=== PATIENT | male | born 1940 | race Caucasian/White ===

== ENCOUNTER 2017-12-14 04:33 | Inpatient (IN) | payer BC, MEDICARE ==
[~2017-12-14] VITALS: Ht 167.6 cm; Wt 78.0 kg
[2017-12-14] VITALS (9 sets, daily range): BP systolic 91–148; BP diastolic 50–76; PULSE 73–117; RESP 16–20; TEMP 97.6–103.2; O2SAT 87–97
--- NOTE | 2017-12-14 04:57 | PD ---
HPI Chief Complaint: Fever Time Seen by Provider: 04:38 Travel History International Travel<30 days: No Contact w/Intl Traveler<30days: No Traveled to known affect area: No History of Present Illness HPI The patient is a 77 year old male who presents to the [facility] emergency department with a history of difficulty urinating for the last week. The patient reports that he is visiting from [place]. He did call his urologist regarding this and his symptoms seem to be improving, however the symptoms also seem to be coming and going. He reports that he has an implanted artificial bladder and artificial sphincter. He reports that he presses a valve to open up and drain his bladder. He reports that he has been having difficulties with this and they plan to remove it. He reports that he had his bladder removed and the artificial bladder placed when he had bladder cancer in 2002. The patient reports that for the last 2 days he has had nausea without vomiting. The patient reports that he awoke around 1 AM with fever and chills. According to ambulance services the patient's took his temperature and it was 104. 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 The patient arrives with a reportedly normal temperature according to the nurse. The patient is tachycardic in the 1 teens. The patient has a cough that is productive sounding on exam, however he reports that this is chronic and he believes related to prior smoking and COPD. He denies his coughing any more productive than usual. He denies having any nasal discharge, postnasal drip, or sore throat. The patient was noted to be saturating 87% on room air on arrival. The patient was placed on 2 L nasal cannula O2 and his O2 saturations went up to 93-94%. On review of systems, he denies having any chest pain, chest pressure, worsening shortness of breath. He denies having any neck pain, abdominal pain, diarrhea, or focal neurologic symptoms. [facility] Past Medical History Narrative Medical The patient's past medical history is significant for hypertension, COPD, history of bladder cancer, hyperlipidemia, coronary artery disease status post cardiac stent placement. Respiratory: Yes (COPD) Past Surgical History Narrative Surgical The patient's past surgical history is significant for cardiac catheterization with stent placement, latter cancer resection, neobladder placement, artificial bladder sphincter placement, history of low back surgery, history of Botox injection of his throat, history of a hernia repair, history of back stimulator placement. Social History Tobacco Use: No (Quit 9 years ago) Allergies-Medications (Allergen,Severity, Reaction): Coded Allergies: No Known Allergies (Verified Allergy, Unknown, 12/14/17) Reported Meds & Prescriptions Reported Meds & Active Scripts Active Reported Prednisone 20 Mg Tab 20 Mg PO DIRECTED 40 MG twice a day x 3 days, then 20 MG daily x 3 days, then 10 MG daily x 3 days Isosorbide Mononitrate 20 Mg Tab 30 Mg PO BID Take 2 doses 7 hours apart. Nitrostat SL (Nitroglycerin) 0.4 Mg Subl 0.4 Mg SL DIRECTED PRN 1 tablet under the tongue as needed for chest pain. Repeat every 5 minutes for a total of 3 DOSES or call 911 if NO relief. Brilinta (Ticagrelor) 90 Mg Tab 90 Mg PO BID Ferrous Sulfate 325 Mg (65 Mg Iron) Tablet 325 Mg PO BIDPC Aspirin 81 Mg Chew 81 Mg CHEW DAILY Advair Diskus Inh (Fluticasone-Salmeterol Inh) 250-50 Mcg/Blist Aer 1 Puff INH BID Rinse mouth after use. Spiriva Handihaler (Tiotropium Inh) 18 Mcg Cap 18 Mcg INH DAILY 1 capsule = 18 mcg Tramadol (Tramadol HCl) 50 Mg Tab 50 Mg PO Q8HR PRN Gabapentin 600 Mg Tab 600 Mg PO HS Atenolol 50 Mg Tab 50 Mg PO DAILY Review of Systems Except as stated in HPI: all other systems reviewed are Neg General / Constitutional: Positive: Fever, Chills Eyes: No: Visual changes HENT: Positive: Congestion, No: Headaches Cardiovascular: No: Chest Pain or Discomfort Respiratory: Positive: Cough, No: Shortness of Breath Gastrointestinal: Positive: Nausea, No: Vomiting, Diarrhea, Abdominal Pain Genitourinary: Positive: Dysuria, Hesitancy Musculoskeletal: No: Pain Skin: No Rash Neurologic: Positive: Weakness (Generalized weakness), No: Focal Abnormalities , Coordination Problem, Change in Mentation, Slurred Speech, Sensory Disturbance Psychiatric: No: Depression Endocrine: No: Polydipsia Hematologic/Lymphatic: No: Easy Bruising Physical Exam Narrative General: The patient is a well-developed well-nourished male in no acute distress. Head and Neck exam: Head is normocephalic atraumatic. Eyes: EOMI, pupils are equal round and reactive to light. Nose: Midline septum with pink mucous membranes Mouth: Dentition unremarkable. Moist mucus membranes. Posterior oropharynx is not erythematous. No tonsillar hypertrophy. Uvula midline. Airway patent. Neck: No palpable lymphadenopathy. No nuchal rigidity. No thyromegaly. Cardiovascular: Sinus tachycardia in the 1 teens without murmurs or rubs audible, however or gallop is noted. No pulse deficit to the extremities on simultaneous auscultation and palpation of his radial artery. Lungs: Scattered rhonchi are noted that seem to clear with coughing. No wheezes are audible. No crackles audible, however he has decreased breath sounds in bilateral lung bases. No accessory muscle use noted. No paroxysmal abdominal breathing. Abdomen: Soft, without tenderness to palpation in all 4 quadrants of the abdomen. No guarding, rebound, or rigidity. Normal bowel sounds are audible. No tenderness on palpation of McBurney's point. Negative Tesfaye sign. Extremities: No clubbing, cyanosis, or edema. 2+ pulses in all 4 extremities. No calf tenderness on palpation. Back: No spinous process tenderness to palpation. No costovertebral angle tenderness to palpation. Neurologic Exam: Grossly nonfocal. Skin Exam: No rash noted. Intact skin that is warm and dry. Data Data Last Documented VS Vital Signs Date Time Temp Pulse Resp B/P (MAP) Pulse Ox O2 Delivery O2 Flow Rate FiO2 12/14/17 06:13 103.2 12/14/17 04:43 20 92 2.00 12/14/17 04:43 114 Nasal Cannula 12/14/17 04:39 148/76 (100) Orders Orders Electrocardiogram (12/14/17 04:38) Complete Blood Count With Diff (12/14/17 04:38) Comprehensive Metabolic Panel (12/14/17 04:38) Creatine Kinase (Cpk) (12/14/17 04:38) Ckmb (Isoenzyme) Profile (12/14/17 04:38) Troponin I (12/14/17 04:38) B-Type Natriuretic Peptide (12/14/17 04:38) Prothrombin Time / Inr (Pt) (12/14/17 04:38) Act Partial Throm Time (Ptt) (12/14/17 04:38) Blood Culture (12/14/17 04:38) Lipase (12/14/17 04:38) Urinalysis - C+S If Indicated (12/14/17 04:38) Magnesium (Mg) (12/14/17 04:38) Influenzae A/B Antigen (12/14/17 04:38) Chest, Single Ap (12/14/17 04:38) Iv Access Insert/Monitor (12/14/17 04:38) Ecg Monitoring (12/14/17 04:38) Oximetry (12/14/17 04:38) Lactic Acid Sepsis Protocol (12/14/17 04:38) Sodium Chlorid 0.9% 500 Ml Inj (Ns 500 M (12/14/17 05:15) Ondansetron Inj (Zofran Inj) (12/14/17 05:15) CKMB (12/14/17 04:50) CKMB% (12/14/17 04:50) Urine Culture (12/14/17 05:25) Ceftriaxone Inj (Rocephin Inj) (12/14/17 06:00) Azithromycin Inj (Zithromax Inj) (12/14/17 06:00) Acetaminophen (Tylenol) (12/14/17 06:15) Admit Order (Ed Use Only) (12/14/17 06:37) Labs Laboratory Tests Test 12/14/17 04:50 12/14/17 05:25 White Blood Count 13.2 TH/MM3 Red Blood Count 4.93 MIL/MM3 Hemoglobin 14.4 GM/DL Hematocrit 43.4 % Mean Corpuscular Volume 88.1 FL Mean Corpuscular Hemoglobin 29.2 PG Mean Corpuscular Hemoglobin Concent 33.1 % Red Cell Distribution Width 13.7 % Platelet Count 256 TH/MM3 Mean Platelet Volume 7.9 FL Neutrophils (%) (Auto) 83.1 % Lymphocytes (%) (Auto) 6.2 % Monocytes (%) (Auto) 10.0 % Eosinophils (%) (Auto) 0.5 % Basophils (%) (Auto) 0.2 % Neutrophils # (Auto) 11.0 TH/MM3 Lymphocytes # (Auto) 0.8 TH/MM3 Monocytes # (Auto) 1.3 TH/MM3 Eosinophils # (Auto) 0.1 TH/MM3 Basophils # (Auto) 0.0 TH/MM3 CBC Comment DIFF FINAL Differential Comment Prothrombin Time 10.9 SEC Prothromb Time International Ratio 1.1 RATIO Activated Partial Thromboplast Time 28.4 SEC Blood Urea Nitrogen 21 MG/DL Creatinine 1.30 MG/DL Random Glucose 110 MG/DL Total Protein 8.4 GM/DL Albumin 3.2 GM/DL Calcium Level 9.0 MG/DL Magnesium Level 1.6 MG/DL Alkaline Phosphatase 83 U/L Aspartate Amino Transf (AST/SGOT) 42 U/L Alanine Aminotransferase (ALT/SGPT) 45 U/L Total Bilirubin 0.4 MG/DL Sodium Level 134 MEQ/L Potassium Level 3.8 MEQ/L Chloride Level 103 MEQ/L Carbon Dioxide Level 22.7 MEQ/L Anion Gap 8 MEQ/L Estimat Glomerular Filtration Rate 54 ML/MIN Lactic Acid Level 1.4 mmol/L Total Creatine Kinase 134 U/L Creatine Kinase MB 1.2 NG/ML Troponin I LESS THAN 0.02 NG/ML B-Type Natriuretic Peptide 34 PG/ML Lipase 83 U/L Urine Color YELLOW Urine Turbidity CLEAR Urine pH 7.0 Urine Specific [place] 1.010 Urine Protein 30 mg/dL Urine Glucose (UA) NEG mg/dL Urine Ketones NEG mg/dL Urine Occult Blood SMALL Urine Nitrite NEG Urine Bilirubin NEG Urine Urobilinogen LESS THAN 2.0 MG/DL Urine Leukocyte Esterase SMALL Urine RBC 5 /hpf Urine WBC 29 /hpf Urine Squamous Epithelial Cells 1 /hpf Urine Transitional Epithelial Cells <1 /hpf Urine Renal Epithelial Cells <1 /hpf Urine Hyaline Casts 2 /lpf Microscopic Urinalysis Comment CULTURE INDICATED MDM Medical Decision Making Medical Screen Exam Complete: Yes Emergency Medical Condition: Yes Medical Record Reviewed: Yes Interpretation(s) Last Impressions Chest X-Ray 12/14/17 0438 Signed Impressions: Service Date/Time: Thursday, December 14, 2017 05:24 - CONCLUSION: Mild bilateral pulmonary opacities. Sammy Mace MD Differential Diagnosis Pneumonia, versus pyelonephritis, versus influenza, versus sepsis of undetermined origin Narrative Course During the course of the patient's emergency department visit, the patient's history, examination, and differential diagnosis were reviewed with the patient. The patient was placed on a alarm security or surveillance monitor with oximetry and frequent blood pressure monitoring. The patient had IV access obtained and blood work sent for analysis. The patient had an EKG done on arrival that shows a sinus tachycardia rate of 112, marked right axis deviation, QRS duration is 94 ms, QTC [address] segment elevation is noted. The patient's room air saturation was noted to be 87%. The patient placed on 2 L nasal cannula O2. The patient had blood cultures 2 drawn, lactic acid sent for analysis. The patient was initially provided normal saline at 500 mL bolus 1, Zofran 4 mg IV. Due to a concern for pneumonia the patient was started on Rocephin 1 g IV, Zithromax 500 IV The patient's laboratory studies were reviewed and remarkable for a white count of 13.2, hemoglobin 14.4, platelets 256 with 83.1 neutrophils, lymphocytes 6.2, monocytes 10, CMP is remarkable for a sodium of 134, BUN 21, glucose 110, AST 42 , initial set of cardiac enzymes are within normal limits, BNP 34, lipase 83. PT PTT within normal limits, urinalysis shows small occult blood 5 RBCs 29 WBCs , culture indicated, suspicious for infection, however the patient was started on Rocephin which should cover for urinary tract infection related organisms. Radiology studies were reviewed and remarkable for a chest x-ray that shows mild bilateral pulmonary opacities. The patient's results were discussed with the patient, including the plan of care. I explained that further testing and/ or monitoring is indicated based on the patient's history, examination, and/ or laboratory findings. Therefore, I recommended admission for additional evaluation. The patient expressed understanding and was agreeable with this plan. The patient was admitted to the hospital in guarded condition and sent to a bed under the care of the [facility] service. Sepsis Criteria SIRS Criteria (2 or more): Heart rate over 90 Physician Communication Physician Communication The patient's case including history, pertinent physical examination findings, and laboratory studies were discussed with Dr. Pabon. It was agreed that the patient would be admitted to the [facility] service. Diagnosis Primary Impression: Pneumonia Qualified Codes: J18.1 - Lobar pneumonia, unspecified organism Additional Impressions: Urinary tract infection Qualified Codes: N39.0 - Urinary tract infection, site not specified; R31.9 - Hematuria, unspecified Hypoxemia Admitting Information Admitting Physician Requests: Admit Zahira Meek MD Dec 14, 2017 04:57
[2017-12-14] MEDS ORDERED: TRAM50TA PO (05:00)
[2017-12-14] MEDS ORDERED: SPIRCAP INH (05:00)
[2017-12-14] MEDS ORDERED: BRIL90TA PO (05:00)
[2017-12-14] MEDS ORDERED: NITR0.4S SL (05:00)
[2017-12-14] MEDS ORDERED: ASPI-516 CHEW (05:00)
[2017-12-14] MEDS ORDERED: ATEN50TA PO (05:00)
[2017-12-14] MEDS ORDERED: FERR325T18 PO (05:00)
[2017-12-14] MEDS ORDERED: GABA600T PO (05:00)
[2017-12-14] MEDS ORDERED: PRED20 PO (05:00)
[2017-12-14] MEDS ORDERED: ADVA250A INH (05:00)
[2017-12-14] MEDS ORDERED: ISOS20TA PO (05:00)
[2017-12-14 05:14] LABS: BASOPHIL % 0.2 % (0.0-2.0); EOSINOPHIL # 0.1 TH/MM3 (0-0.4); EOSINOPHIL % 0.5 % (0.0-4.0); HEMATOCRIT 43.4 % (39.0-51.0); HEMOGLOBIN 14.4 GM/DL (13.0-17.0); LYMPH % 6.2 % (9.0-44.0); LYMPHOCYTE # 0.8 TH/MM3 (1.0-4.8); MEAN CELL VOLUME 88.1 FL (80.0-100.0); MEAN CORPUSCULAR HEMOGLOBIN 29.2 PG (27.0-34.0); MEAN CORPUSCULAR HGB CONC 33.1 % (32.0-36.0); MEAN PLATELET VOLUME 7.9 FL (7.0-11.0); MONOCYTE # 1.3 TH/MM3 (0-0.9); NEUT % 83.1 % (16.0-70.0); PLATELET COUNT 256 TH/MM3 (150-450); RED BLOOD COUNT 4.93 MIL/MM3 (4.50-5.90); RED CELL DISTRIBUTION WIDTH 13.7 % (11.6-17.2); WHITE BLOOD COUNT 13.2 TH/MM3 (4.0-11.0)
[2017-12-14] MEDS ORDERED: SODIUM CHLORID 0.9% 500 ML INJ 500 ML IV ONE (05:15)
[2017-12-14] MEDS ORDERED: ONDANSETRON HCL 4 MG/2 ML VIAL IV ONE (05:15)
[2017-12-14 05:37] LABS: ALBUMIN 3.2 GM/DL (3.4-5.0); AST (GOT) 42 U/L (15-37); BICARBONATE 22.7 MEQ/L (21.0-32.0); BLOOD UREA NITROGEN 21 MG/DL (7-18); CHLORIDE 103 MEQ/L (98-107); GLOMERULAR FILTRATION RATE 54 ML/MIN (>89); GLUCOSE,RANDOM 110 MG/DL (74-106); MAGNESIUM 1.6 MG/DL (1.5-2.5); SODIUM (NA) 134 MEQ/L (136-145)
[2017-12-14 05:38] LABS: ALT (GPT) 45 U/L (12-78)
[2017-12-14 05:42] LABS: ALKALINE PHOSPHATASE 83 U/L (45-117); TOTAL BILIRUBIN ADULT 0.4 MG/DL (0.2-1.0); TOTAL PROTEIN 8.4 GM/DL (6.4-8.2); TROPONIN I LESS THAN 0.02 NG/ML (0.02-0.05)
[2017-12-14 05:43] LABS: INTERNATIONAL NORMALIZED RATIO 1.1 RATIO; PROTHROMBIN TIME - PATIENT 10.9 SEC (9.8-11.6)
[2017-12-14 05:48] LABS: BILIRUBIN, URINE NEG (NEG); BLOOD, URINE SMALL (NEG); GLUCOSE,URINE NEG (NEG); HYALINE CAST, URINE 2 /lpf (RARE); KETONE, URINE NEG (NEG); NITRITE,URINE NEG (NEG); RENAL EPITHELIAL CELLS <1 /hpf; SQUAMOUS EPITHELIAL CELL URINE 1 /hpf (0-5); TRANSITIONAL EPI CELLS, URINE <1 /hpf; URINE COLOR YELLOW (YELLW/STRAW); URINE LEUKOCYTE ESTERASE SMALL (NEG)
--- NOTE | 2017-12-14 05:54 | RADRPT ---
EXAM DATE/TIME: 12/14/2017 05:24 [place] COMPARISON: No previous studies available for comparison. INDICATIONS : Fever, body aches and shortness of breath. MEDICAL HISTORY : Chronic obstructive pulmonary disease. SURGICAL HISTORY : L4, Back stimulator, Bladder surgery, Cardiac cath, Coronary stent. ENCOUNTER: Initial ACUITY: 1 day PAIN SCORE: 0/10 LOCATION: Bilateral chest FINDINGS: No priors. Mild consolidation seen of both lung bases and could represent early or mild pneumonia in the proper clinical setting. No pleural effusion. No pneumothorax. Heart size within normal limits. CONCLUSION: Mild bilateral pulmonary opacities. Sammy Mace MD on December 14, 2017 at 5:51 Board Certified Radiologist. This report was verified electronically.
[2017-12-14] MEDS ORDERED: AZITHROMYCIN INJ 500 MG in SODIUM CHLOR 0.9% 250 ML INJ 250 ML IV ONE (06:00)
[2017-12-14] MEDS ORDERED: cefTRIAXone INJ 1,000 MG in SODIUM CHLORIDE 0.9% INJ 100 ML IV ONE (06:00)
[2017-12-14] MEDS ORDERED: ACETAMINOPHEN 325 MG TAB PO ONE (06:15)
[2017-12-14] MEDS ORDERED: BISACODYL 10 MG SUPP RECTAL PRN (06:30)
[2017-12-14] MEDS ORDERED: ONDANSETRON HCL 4 MG/2 ML VIAL IVP PRN (06:30)
[2017-12-14] MEDS ORDERED: MORPHINE SULFATE 2 MG/ML SYRINGE IV PUSH PRN (06:30)
[2017-12-14] MEDS ORDERED: SODIUM CHLORIDE 0.9% FLUSH 10 ML FLUSH IV FLUSH PRN (06:30)
[2017-12-14] MEDS ORDERED: MAGNESIUM HYDROXIDE SUSP 30 ML CUP PO PRN (06:30)
[2017-12-14] MEDS ORDERED: SENNOSIDES 8.6 MG TAB PO PRN (06:30)
[2017-12-14] MEDS ORDERED: ACETAMINOPHEN/HYDROcodone 325 MG/5 MG TAB PO PRN (06:30)
[2017-12-14] MEDS ORDERED: RESP: ALBUTEROL 2.5 MG/IPRATROPIUM 0.5 MG NEB (PRN) NEB (06:30)
[2017-12-14] MEDS ORDERED: LACTULOSE SYRUP 20 GM/30 ML CUP PO PRN (06:30)
[2017-12-14] MEDS ORDERED: ISOSORBIDE MONONITRATE 20 MG TAB PO SCH (07:00)
[2017-12-14] MEDS: SODIUM CHLOR 0.9% 1000 ML INJ 1,000 ML IV SCH ×2 (07:50→18:35)
[2017-12-14] MEDS ORDERED: ISOS30TA3 PO (07:52)
[2017-12-14] MEDS: ISOSORBIDE MONONITRATE 30 MG CR TAB (IMDUR) PO SCH (08:20)
[2017-12-14] MEDS: ATENOLOL 50 MG TAB PO SCH (09:00)
[2017-12-14] MEDS ORDERED: TIOTROPIUM BROMIDE 18 MCG INH INH SCH (09:00)
[2017-12-14] MEDS: RESP: ALBUTEROL 2.5 MG/IPRATROPIUM 0.5 MG NEB (SCH) NEB ×3 (09:32→19:56)
--- NOTE | 2017-12-14 09:47 | HHI.HP ---
[facility] Unknown Admission Diagnosis Pneumonia, hypoxemia, UTI Diagnoses: Chief Complaint: Shortness of breath Travel History International Travel<30 Days: No Contact w/Intl Traveler <30 Da: No Traveled to Known Affected Are: No History of Present Illness The patient is a 77-year-old male with a past medical history of bladder cancer and pneumonia who is presenting to the hospital with shortness of breath and fever. Patient says that he has an artificial bladder and has been having issues with that lately. He says that he feels the urge to go but when he tries to go the bathroom nothing happens. She said that starting yesterday his bladder started working normally. He said that this morning at around 3 AM he woke up freezing, shaky and having difficulty breathing. He noticed that he had a high fever. He waited a half hours for symptoms to improve and then he called ambulance. He said that he feels a lot better after having received oxygen and antibiotics. He says he last had pneumonia last year. He said that he has had pneumonia about 4 times before. He says that he has a history of COPD. Patient also endorses not eating well lately. He says oftentimes he will have an [place] muffin for breakfast and will not eat until dinnertime. He said that he has lost about 25 pounds over the past 3 months. He says he has been keeping up with his colonoscopies. He denies any night sweats. Review of Systems Except as stated in HPI: all other systems reviewed are Neg Past Family Social History Past Medical History Bladder cancer status post bladder removal and chemotherapy COPD Pneumonia Hypertension Hyperlipidemia TIA Past Surgical History Back surgery Bladder surgery Allergies: Coded Allergies: No Known Allergies (Verified Allergy, Unknown, 12/14/17) Active Ordered Medications Current Medications Medications (Trade) Dose Ordered Sig/Shireen Route Start Time Stop Time Status Last Admin Ceftriaxone Sodium 1000 mg/ Sodium Chloride 100 ml @ 200 mls/hr Q24H IV 12/15/17 06:00 Azithromycin 500 mg/Sodium Chloride 250 ml @ 250 mls/hr Q24H IV 12/15/17 08:00 Sodium Chloride 1,000 ml @ 100 mls/hr Q10H IV 12/14/17 06:30 12/14/17 07:50 (NS Flush) 2 ml UNSCH PRN IV FLUSH 12/14/17 06:30 (NS Flush) 2 ml BID IV FLUSH 12/14/17 09:00 (Zofran Inj) 4 mg Q6H PRN IVP 12/14/17 06:30 (Tylenol) 650 mg Q6H PRN PO 12/14/17 06:30 ([place] 5-325 Mg) 1 tab Q4H PRN PO 12/14/17 06:30 (Morphine Inj) 2 mg Q3H PRN IV PUSH 12/14/17 06:30 (Paulette-Colace) 1 tab BID PO 12/14/17 09:00 (Milk Of Magnesia Liq) 30 ml Q12H PRN PO 12/14/17 06:30 (Senokot) 17.2 mg Q12H PRN PO 12/14/17 06:30 (Dulcolax Supp) 10 mg DAILY PRN RECTAL 12/14/17 06:30 (Lactulose Liq) 30 ml DAILY PRN PO 12/14/17 06:30 (Duoneb Neb) 1 ampule Q4HR NEB PRN NEB 12/14/17 06:30 (Aspirin Chew) 81 mg DAILY CHEW 12/14/17 09:00 (Neurontin) 600 mg HS PO 12/14/17 21:00 (Brilinta) 90 mg BID PO 12/14/17 09:00 (Symbicort 160-4.5 Mcg Inh) 2 puff BID INH 12/14/17 09:00 (Imdur) 30 mg DAILY@0700 PO 12/14/17 08:00 12/14/17 08:20 (Tenormin) 50 mg DAILY PO 12/14/17 09:00 (Ferrous Sulfate) 325 mg BIDPC PO 12/14/17 09:00 (Duoneb Neb) 1 ampule Q6HR WHILE AWAKE NEB NEB 12/14/17 08:45 12/14/17 09:32 Family History The patient denies any pertinent family history. Social History The patient quit smoking in 2008. He has occasional alcohol use. He denies any illicit drug use. Physical Exam Vital Signs Vital Signs Date Time Temp Pulse Resp B/P (MAP) Pulse Ox O2 Delivery O2 Flow Rate FiO2 12/14/17 09:33 94 Nasal Cannula 2.00 12/14/17 06:13 103.2 12/14/17 04:43 20 92 2.00 12/14/17 04:43 114 20 91 Nasal Cannula 2.00 12/14/17 04:39 97.8 117 20 148/76 (100) 87 Physical Exam GENERAL: This is a well-nourished, well-developed patient, in no apparent distress. SKIN: No rashes, ecchymoses or lesions. Cool and dry. HEAD: Atraumatic. Normocephalic. No temporal or scalp tenderness. EYES: Pupils equal round and reactive. Extraocular motions intact. No scleral icterus. No injection or drainage. ENT: Nose without bleeding, purulent drainage or septal hematoma. Throat without erythema, tonsillar hypertrophy or exudate. Uvula midline. Airway patent. NECK: Trachea midline. No JVD or lymphadenopathy. Supple, nontender, no meningeal signs. CARDIOVASCULAR: Regular rate and rhythm without murmurs, gallops, or rubs. RESPIRATORY: Mild inspiratory wheezing. GASTROINTESTINAL: Abdomen soft, non-tender, nondistended. No hepato-splenomegaly , or palpable masses. No guarding. MUSCULOSKELETAL: Extremities without clubbing, cyanosis, or edema. No joint tenderness, effusion, or edema noted. NEUROLOGICAL: Awake and alert. Cranial nerves II through XII intact. Motor and sensory grossly within normal limits. Five out of 5 muscle strength in all muscle groups. Normal speech. PSYCH: Mood and affect appropriate. Laboratory Laboratory Tests Test 12/14/17 04:50 12/14/17 05:25 White Blood Count 13.2 Red Blood Count 4.93 Hemoglobin 14.4 Hematocrit 43.4 Mean Corpuscular Volume 88.1 Mean Corpuscular Hemoglobin 29.2 Mean Corpuscular Hemoglobin Concent 33.1 Red Cell Distribution Width 13.7 Platelet Count 256 Mean Platelet Volume 7.9 Neutrophils (%) (Auto) 83.1 Lymphocytes (%) (Auto) 6.2 Monocytes (%) (Auto) 10.0 Eosinophils (%) (Auto) 0.5 Basophils (%) (Auto) 0.2 Neutrophils # (Auto) 11.0 Lymphocytes # (Auto) 0.8 Monocytes # (Auto) 1.3 Eosinophils # (Auto) 0.1 Basophils # (Auto) 0.0 CBC Comment DIFF FINAL Differential Comment Prothrombin Time 10.9 Prothromb Time International Ratio 1.1 Activated Partial Thromboplast Time 28.4 Blood Urea Nitrogen 21 Creatinine 1.30 Random Glucose 110 Total Protein 8.4 Albumin 3.2 Calcium Level 9.0 Magnesium Level 1.6 Alkaline Phosphatase 83 Aspartate Amino Transf (AST/SGOT) 42 Alanine Aminotransferase (ALT/SGPT) 45 Total Bilirubin 0.4 Sodium Level 134 Potassium Level 3.8 Chloride Level 103 Carbon Dioxide Level 22.7 Anion Gap 8 Estimat Glomerular Filtration Rate 54 Lactic Acid Level 1.4 Total Creatine Kinase 134 Creatine Kinase MB 1.2 Troponin I LESS THAN 0.02 B-Type Natriuretic Peptide 34 Lipase 83 Urine Color YELLOW Urine Turbidity CLEAR Urine pH 7.0 Urine Specific [place] 1.010 Urine Protein 30 Urine Glucose (UA) NEG Urine Ketones NEG Urine Occult Blood SMALL Urine Nitrite NEG Urine Bilirubin NEG Urine Urobilinogen LESS THAN 2.0 Urine Leukocyte Esterase SMALL Urine RBC 5 Urine WBC 29 Urine Squamous Epithelial Cells 1 Urine Transitional Epithelial Cells <1 Urine Renal Epithelial Cells <1 Urine Hyaline Casts 2 Microscopic Urinalysis Comment CULTURE INDICATED Date/Time Source Procedure Growth Status 12/14/17 04:50 Blood Peripheral Aerobic Blood Culture Pending Received 12/14/17 04:50 Blood Peripheral Anaerobic Blood Culture Pending Received 12/14/17 04:50 Nasal Aspirate Influenza Types A,B Antigen (GERTRUDIS) - Final NEGATIVE FOR FLU A AND B ANTIGEN.... Complete 12/14/17 05:25 Urine Random Urine Urine Culture Pending Received Result Diagram: 12/14/17 0450 12/14/17 0450 Imaging Last Impressions Chest X-Ray 12/14/17 0438 Signed Impressions: Service Date/Time: Thursday, December 14, 2017 05:24 - CONCLUSION: Mild bilateral pulmonary opacities. Sammy Mace MD Caprini VTE Risk Assessment Caprini VTE Risk Assessment: Mod/High Risk (score >= 2) Caprini Risk Assessment Model Point Value = 1 Point Value = 2 Point Value = 3 Point Value = 5 Age 41-60 Minor surgery BMI > 25 kg/m2 Swollen legs Varicose veins or History of unexplained or recurrent spontaneous Oral contraceptives or hormone replacement Sepsis (< 1 month) Serious lung disease, including pneumonia (< 1 month) Abnormal pulmonary function Acute myocardial infarction Congestive heart failure (< 1 month) History of inflammatory bowel disease Medical patient at bed rest Age 61-74 Arthroscopic surgery Major open surgery (> 45 min) Laparoscopic surgery (> 45 min) Malignancy Confined to bed (> 72 hours) Immobilizing plaster cast Central venous access Age >= 75 History of VTE Family history of VTE Factor V Leiden Prothrombin [id number] Lupus anticoagulant Anticardiolipin antibodies Elevated serum homocysteine Heparin-induced thrombocytopenia Other congenital or acquired thrombophilia Stroke (< 1 month) Elective arthroplasty Hip, pelvis, or leg fracture Acute spinal cord injury (< 1 month) Prophylaxis Regimen Total Risk Factor Score Risk Level Prophylaxis Regimen 0-1 Low Early ambulation 2 Moderate Order ONE of the following: *Sequential Compression Device (SCD) *Heparin 5000 units SQ BID 3-4 Higher Order ONE of the following medications: *Heparin 5000 units SQ TID *Enoxaparin/Lovenox 40 mg SQ daily (WT < 150 kg, CrCl > 30 mL/min) *Enoxaparin/Lovenox 30 mg SQ daily (WT < 150 kg, CrCl > 10-29 mL/min) *Enoxaparin/Lovenox 30 mg SQ BID (WT < 150 kg, CrCl > 30 mL/min) AND/OR *Sequential Compression Device (SCD) 5 or more Highest Order ONE of the following medications: *Heparin 5000 units SQ TID (Preferred with Epidurals) *Enoxaparin/Lovenox 40 mg SQ daily (WT < 150 kg, CrCl > 30 mL/min) *Enoxaparin/Lovenox 30 mg SQ daily (WT < 150 kg, CrCl > 10-29 mL/min) *Enoxaparin/Lovenox 30 mg SQ BID (WT < 150 kg, CrCl > 30 mL/min) AND *Sequential Compression Device (SCD) Assessment and Plan Assessment and Plan CAP/ COPD The pt had shortness of breath, fever and CXR shows mild bilateral pulmonary opacities. - continue oxygen and nebs as needed. Also standing nebs. - continue IV ceftriaxone and azithromycin. - follow culture data. - ADAT. Weight loss The pt endorses 25 pounds lost over the past three months. He says he has been keeping up with colonoscopies. - ADAT. Add Ensure. Service Loss Control Consultant consult. - check TSH and A1c. Dysuria The pt has been having difficulties with his artificial bladder but that seems to have resolved. - outpt follow-up with urology in [place] next week as scheduled. - follow urine culture. - continue ceftriaxone. Renal insufficiency/ Hyponatremia Likely s/t above. - continue normal saline and monitor BMP. - ADAT. PPx: Heparin Code Status Full Discussed Condition With Pt Physician Certification 2 Midnight Certification Type: Admission for Inpatient Services Order for Inpatient Services The services are ordered in accordance with Medicare regulations or non- Medicare payer requirements, as applicable. In the case of services not specified as inpatient-only, they are appropriately provided as inpatient services in accordance with the 2-midnight benchmark. Estimated LOS (days): 2 days is the estimated time the patient will need to remain in the hospital, assuming treatment plan goals are met and no additional complications. Post-Hospital Plan: Home Gene Velasquez DO Dec 14, 2017 09:47
[2017-12-14] MEDS: DOCUSATE SODIUM 50 MG/SENNA 8.6 MG TAB PO SCH ×2 (10:05→21:03)
[2017-12-14] MEDS: FERROUS SULFATE 325 MG (65 MG ELEMENTAL IRON) TAB PO SCH ×2 (10:05→17:13)
[2017-12-14] MEDS: TICAGRELOR 90 MG TAB PO SCH ×2 (10:06→21:04)
[2017-12-14] MEDS: ASPIRIN 81 MG CHEW TAB CHEW SCH (10:06)
[2017-12-14] MEDS: BUDESONIDE-FORMOTEROL 160/4.5 MCG INHALER INH SCH ×2 (10:07→21:05)
[2017-12-14] MEDS: SODIUM CHLORIDE 0.9% FLUSH 10 ML FLUSH IV FLUSH SCH ×2 (10:10→21:04)
--- NOTE | 2017-12-14 10:12 | EKG ---
Date Performed: 12/14/2017 Time Performed: 05:02:37 PTAGE: 77 years EKG: SINUS TACHYCARDIA MARKED RIGHT AXIS DEVIATION ABNORMAL ECG NO PREVIOUS TRACING DOCTOR: Rodríguez Noonan Interpretating Date/Time 12/14/2017 10:11:42
[2017-12-14 15:00] LABS: HEMOGLOBIN A1C 5.6 % (4.3-6.0)
[2017-12-14] MEDS: HEPARIN SODIUM - SQ 10,000 UNITS/ML VIAL SQ SCH ×2 (15:09→21:05)
[2017-12-14] MEDS ORDERED: GABAPENTIN 300 MG CAP PO SCH (21:00)
[2017-12-14] MEDS: ACETAMINOPHEN 325 MG TAB PO PRN (21:10)
[2017-12-15] VITALS (7 sets, daily range): BP systolic 131–184; BP diastolic 64–93; PULSE 79–91; RESP 16–20; TEMP 97.2–97.6; O2SAT 95–99
[2017-12-15] MEDS: HEPARIN SODIUM - SQ 10,000 UNITS/ML VIAL SQ SCH ×3 (04:36→23:02)
[2017-12-15] MEDS: cefTRIAXone INJ 1,000 MG in SODIUM CHLORIDE 0.9% INJ 100 ML IV SCH (04:36)
[2017-12-15] MEDS: ACETAMINOPHEN 325 MG TAB PO PRN (04:36)
[2017-12-15] MEDS: SODIUM CHLOR 0.9% 1000 ML INJ 1,000 ML IV SCH ×3 (04:41→22:30)
[2017-12-15] MEDS: ISOSORBIDE MONONITRATE 30 MG CR TAB (IMDUR) PO SCH (04:41)
[2017-12-15 05:04] LABS: AUTOMATED NEUTROPHIL # 7.2 TH/MM3 (1.8-7.7); BASOPHIL % 0.3 % (0.0-2.0); EOSINOPHIL # 0.1 TH/MM3 (0-0.4); EOSINOPHIL % 0.7 % (0.0-4.0); HEMATOCRIT 38.3 % (39.0-51.0); HEMOGLOBIN 12.7 GM/DL (13.0-17.0); LYMPH % 5.3 % (9.0-44.0); LYMPHOCYTE # 0.5 TH/MM3 (1.0-4.8); MEAN CORPUSCULAR HEMOGLOBIN 29.5 PG (27.0-34.0); MEAN CORPUSCULAR HGB CONC 33.2 % (32.0-36.0); MEAN PLATELET VOLUME 7.3 FL (7.0-11.0); MONO % 18.7 % (0.0-8.0); MONOCYTE # 1.8 TH/MM3 (0-0.9); PLATELET COUNT 257 TH/MM3 (150-450); RED CELL DISTRIBUTION WIDTH 14.1 % (11.6-17.2); WHITE BLOOD COUNT 9.6 TH/MM3 (4.0-11.0)
[2017-12-15 05:27] LABS: ALBUMIN 2.6 GM/DL (3.4-5.0); ALKALINE PHOSPHATASE 80 U/L (45-117); ALT (GPT) 67 U/L (12-78); AST (GOT) 60 U/L (15-37); BICARBONATE 21.3 MEQ/L (21.0-32.0); BLOOD UREA NITROGEN 18 MG/DL (7-18); CALCIUM 8.7 MG/DL (8.5-10.1); CHLORIDE 113 MEQ/L (98-107); CREATININE 1.08 MG/DL (0.60-1.30); GLOMERULAR FILTRATION RATE 67 ML/MIN (>89); GLUCOSE,RANDOM 89 MG/DL (74-106); SODIUM (NA) 142 MEQ/L (136-145); TOTAL BILIRUBIN ADULT 0.2 MG/DL (0.2-1.0); TOTAL PROTEIN 6.9 GM/DL (6.4-8.2)
[2017-12-15] MEDS: RESP: ALBUTEROL 2.5 MG/IPRATROPIUM 0.5 MG NEB (SCH) NEB ×3 (07:41→21:08)
[2017-12-15] MEDS: AZITHROMYCIN INJ 500 MG in SODIUM CHLOR 0.9% 250 ML INJ 250 ML IV SCH (08:31)
[2017-12-15] MEDS: ATENOLOL 50 MG TAB PO SCH (08:32)
[2017-12-15] MEDS: TICAGRELOR 90 MG TAB PO SCH ×2 (08:32→23:01)
[2017-12-15] MEDS: FERROUS SULFATE 325 MG (65 MG ELEMENTAL IRON) TAB PO SCH ×2 (08:33→17:05)
[2017-12-15] MEDS: SODIUM CHLORIDE 0.9% FLUSH 10 ML FLUSH IV FLUSH SCH ×2 (08:33→21:00)
[2017-12-15] MEDS: BUDESONIDE-FORMOTEROL 160/4.5 MCG INHALER INH SCH ×2 (08:33→23:01)
[2017-12-15] MEDS: DOCUSATE SODIUM 50 MG/SENNA 8.6 MG TAB PO SCH ×2 (08:33→23:02)
[2017-12-15] MEDS: ASPIRIN 81 MG CHEW TAB CHEW SCH (08:33)
--- NOTE | 2017-12-15 12:12 | HHI.PR ---
Subjective Remarks Follow-up pneumonia. Patient reporting significant urinary retention today. Describes distention of his bladder and lower abdominal pain. No nausea or vomiting. States that his breathing is much better. Objective Vitals Vital Signs Date Time Temp Pulse Resp B/P (MAP) Pulse Ox O2 Delivery O2 Flow Rate FiO2 12/15/17 08:00 97.5 91 17 179/91 (120) 98 12/15/17 07:44 97 21 12/15/17 00:00 97.4 91 18 131/64 (86) 95 12/14/17 20:00 97.6 99 18 145/67 (93) 94 12/14/17 19:57 97 Nasal Cannula 2.00 12/14/17 16:00 97.7 73 16 108/50 (69) 97 12/14/17 12:38 I/O 12/14/17 12/14/17 12/14/17 12/15/17 12/15/17 12/15/17 07:00 15:00 23:00 07:00 15:00 23:00 Intake Total 850 ml 1500 ml 1340 ml Balance 850 ml 1500 ml 1340 ml Intake Oral 500 ml 240 ml IV Total 850 ml 1000 ml 1100 ml # Voids 2 2 # Bowel Movements 0 Result Diagram: 12/15/17 0345 12/15/17 0345 Imaging Last Impressions Chest X-Ray 12/14/17 0438 Signed Impressions: Service Date/Time: Thursday, December 14, 2017 05:24 - CONCLUSION: Mild bilateral pulmonary opacities. Sammy Mace MD Objective Remarks General: No acute distress. Heart: Regular rate and rhythm. No murmur. Lungs: Clear to auscultation bilaterally. No wheezes, rales, or rhonchi. Breathing is nonlabored. Abdomen: Soft, nontender, nondistended. Bladder is distended. There is ecchymosis in the right lower quadrant. Extremities: No lower extremity edema. Psych: Alert and oriented. Neuro: Normal speech. No focal deficits noted. Procedures None Urinary Catheter: Yes Assessment to: Continue Fernandez insert reason: Obstruction/Retention Vascular Central Line Catheter: No A/P Assessment and Plan 1. Community-acquired pneumonia: Patient presented with shortness of breath, fever. Chest x-ray shows mild bilateral pulmonary opacities. Continue Rocephin , azithromycin. Continue supplemental oxygen as needed. Bronchodilators scheduled and as needed. 2. Weight loss: Patient has had 25 pounds of weight loss over the past 3 months. Diet as tolerated. Add Ensure. Dietary consulted. 3. Urinary retention: Patient has a neobladder and sees urology in [place]. He developed acute retention today. Bladder scan showed 724 cc of urine. Fernandez catheter was placed without complications. Consult urology for further recommendations. 4. Renal insufficiency: Improving. Continue IV fluids. 5. DVT prophylaxis: Heparin. Discharge Planning Possible discharge home tomorrow pending further clinical improvement. Young Garcia MD Dec 15, 2017 12:12
[2017-12-15] MEDS: GABAPENTIN 100 MG CAP PO SCH ×2 (12:54→17:05)
[2017-12-15] MEDS: ACETAMINOPHEN/HYDROcodone 325 MG/10 MG TAB PO PRN ×2 (12:55→17:05)
--- NOTE | 2017-12-15 14:57 | PD.CONS ---
HPI Service Urology Consult Requested By Martha Reason for Consult Urinary retention Primary Care Physician Unknown Diagnosis: (1) Retention of urine ICD Code: R33.9 - Retention of urine, unspecified (2) Bladder cancer ICD Code: C67.9 - Malignant neoplasm of bladder, unspecified History of Present Illness 77y.o M from [place] who was admitted for URI/pnemonia and alsdo found to be in urinary retention. 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 He also has AUS. He follows up regularly with his Urologist at [place]. He admits that lately his AUS was not working properly and he is in retention probably because of it. He had magallanes catheter placed earlier today and drained > 700cc of clear yellow urine. No other Gu c/ o. His labs and VS are improving he is feeling better and planning to be d/c tomorrow and fly back to [place] to see his doctor Review of Systems Except as stated in HPI: all other systems reviewed are Neg Past Family Social History Past Medical History Bladder cancer status post bladder removal and chemotherapy COPD Pneumonia Hypertension Hyperlipidemia TIA Past Surgical History Back surgery Bladder surgery Past Surgical History Back surgery Bladder surgery Allergies: Coded Allergies: No Known Allergies (Verified Allergy, Unknown, 12/14/17) Family History The patient denies any pertinent family history. Social History The patient quit smoking in 2008. He has occasional alcohol use. He denies any illicit drug use. Physical Exam Vital Signs Date Time Temp Pulse Resp B/P (MAP) Pulse Ox O2 Delivery O2 Flow Rate FiO2 12/15/17 12:00 97.2 79 18 184/93 (123) 99 12/15/17 08:00 97.5 91 17 179/91 (120) 98 12/15/17 07:44 97 21 12/15/17 00:00 97.4 91 18 131/64 (86) 95 12/14/17 20:00 97.6 99 18 145/67 (93) 94 12/14/17 19:57 97 Nasal Cannula 2.00 12/14/17 16:00 97.7 73 16 108/50 (69) 97 Physical Exam GENERAL: This is a well-nourished, well-developed patient, in no apparent distress. HEAD Atraumatic. Normocephalic. CARDIOVASCULAR: Regular rate and rhythm without murmurs, RESPIRATORY: Clear to auscultation. Breath sounds equal bilaterally. No wheezes , rales, or rhonchi. GASTROINTESTINAL: Abdomen soft, non-tender, nondistended. GENITOURINARY:Magallanes is in place. AUS pump is in the scrotum MUSCULOSKELETAL: Extremities without clubbing, cyanosis, or edema. NEUROLOGICAL: Awake and alert. Lab results reviewed: Yes Laboratory Tests Test 12/15/17 03:45 White Blood Count 9.6 Red Blood Count 4.30 Hemoglobin 12.7 Hematocrit 38.3 Mean Corpuscular Volume 89.0 Mean Corpuscular Hemoglobin 29.5 Mean Corpuscular Hemoglobin Concent 33.2 Red Cell Distribution Width 14.1 Platelet Count 257 Mean Platelet Volume 7.3 Neutrophils (%) (Auto) 75.0 Lymphocytes (%) (Auto) 5.3 Monocytes (%) (Auto) 18.7 Eosinophils (%) (Auto) 0.7 Basophils (%) (Auto) 0.3 Neutrophils # (Auto) 7.2 Lymphocytes # (Auto) 0.5 Monocytes # (Auto) 1.8 Eosinophils # (Auto) 0.1 Basophils # (Auto) 0.0 CBC Comment DIFF FINAL Differential Comment Blood Urea Nitrogen 18 Creatinine 1.08 Random Glucose 89 Total Protein 6.9 Albumin 2.6 Calcium Level 8.7 Alkaline Phosphatase 80 Aspartate Amino Transf (AST/SGOT) 60 Alanine Aminotransferase (ALT/SGPT) 67 Total Bilirubin 0.2 Sodium Level 142 Potassium Level 3.6 Chloride Level 113 Carbon Dioxide Level 21.3 Anion Gap 8 Estimat Glomerular Filtration Rate 67 Date/Time Source Procedure Growth Status 12/14/17 04:50 Blood Peripheral Aerobic Blood Culture - Preliminary NO GROWTH IN 1 DAY Resulted 12/14/17 04:50 Blood Peripheral Anaerobic Blood Culture - Preliminary NO GROWTH IN 1 DAY Resulted 12/14/17 04:50 Nasal Aspirate Influenza Types A,B Antigen (GERTRUDIS) - Final NEGATIVE FOR FLU A AND B ANTIGEN.... Complete 12/14/17 05:25 Urine Random Urine Urine Culture - Final 10-50,000 CFU/ML MIXED GRAM POSITIVE ... Complete Result Diagram: 12/15/17 0345 12/15/17 0345 Personally reviewed images: Yes Imaging Last Impressions Chest X-Ray 12/14/17 0438 Signed Impressions: Service Date/Time: Thursday, December 14, 2017 05:24 - CONCLUSION: Mild bilateral pulmonary opacities. Sammy Mace MD Assessment and Plan Assessment and Plan 77 y.o M with Pneumonia and Urinary retention Has h/o Bladder TCC, s/p Neobladdder and AUS in 2009 - No acute intervention needed - Continue care and d/c planning as per primary team - Pt to keep magallanes cath is and be d/c with it - He will see his in [place] for further evaluation Discussed Condition With Dr Barth, attending who agrees with this plan Kevin Blair Dec 15, 2017 14:57
[2017-12-16] VITALS: BP 167/77; PULSE 86; RESP 20; TEMP 98; O2SAT 96
[2017-12-16] MEDS ORDERED: MELATONIN 5 MG TAB PO ONE (01:00)
[2017-12-16 04:00] VITALS: BP 180/87; PULSE 79; RESP 18; TEMP 97.6; O2SAT 95
[2017-12-16] MEDS: ACETAMINOPHEN/HYDROcodone 325 MG/10 MG TAB PO PRN (04:25)
[2017-12-16] MEDS: SODIUM CHLOR 0.9% 1000 ML INJ 1,000 ML IV SCH (04:26)
[2017-12-16] MEDS: ISOSORBIDE MONONITRATE 30 MG CR TAB (IMDUR) PO SCH (06:21)
[2017-12-16] MEDS: cefTRIAXone INJ 1,000 MG in SODIUM CHLORIDE 0.9% INJ 100 ML IV SCH (06:22)
[2017-12-16] MEDS: HEPARIN SODIUM - SQ 10,000 UNITS/ML VIAL SQ SCH (06:22)
[2017-12-16 08:00] VITALS: BP 149/90; PULSE 107; RESP 18; TEMP 97.4; O2SAT 95
[2017-12-16] MEDS: RESP: ALBUTEROL 2.5 MG/IPRATROPIUM 0.5 MG NEB (SCH) NEB (08:09)
[2017-12-16 08:10] VITALS: O2SAT 95
[2017-12-16] MEDS: ATENOLOL 50 MG TAB PO SCH (08:14)
[2017-12-16] MEDS: AZITHROMYCIN INJ 500 MG in SODIUM CHLOR 0.9% 250 ML INJ 250 ML IV SCH (08:14)
[2017-12-16] MEDS: ASPIRIN 81 MG CHEW TAB CHEW SCH (08:15)
[2017-12-16] MEDS: DOCUSATE SODIUM 50 MG/SENNA 8.6 MG TAB PO SCH (08:15)
[2017-12-16] MEDS: TICAGRELOR 90 MG TAB PO SCH (08:15)
[2017-12-16] MEDS: GABAPENTIN 100 MG CAP PO SCH (08:15)
[2017-12-16] MEDS: FERROUS SULFATE 325 MG (65 MG ELEMENTAL IRON) TAB PO SCH (08:15)
[2017-12-16] MEDS: SODIUM CHLORIDE 0.9% FLUSH 10 ML FLUSH IV FLUSH SCH (08:15)
[2017-12-16] MEDS: BUDESONIDE-FORMOTEROL 160/4.5 MCG INHALER INH SCH (08:16)
[2017-12-16] MEDS ORDERED: CEFU1TAB18 PO (09:35)
[2017-12-16] MEDS ORDERED: AZIT500T2 PO (09:35)
--- NOTE | 2017-12-16 09:36 | HHI.DCPOC ---
Discharge Care Plan Diagnosis: (1) Urinary tract infection (2) Hypoxemia (3) Pneumonia (4) Retention of urine (5) Bladder cancer Goals to Promote Your Health * To prevent worsening of your condition and complications * To maintain your health at the optimal level Directions to Meet Your Goals Take your medications as prescribed Follow your dietary instruction Follow activity as directed Keep your appointments as scheduled Take your immunizations and boosters as scheduled If your symptoms worsen call your PCP, if no PCP go to Urgent Care Center or Emergency Room Smoking is Dangerous to Your Health. Avoid second hand smoke Call the 24-hour hour crisis hotline for domestic abuse at Young Garcia MD Dec 16, 2017 09:36
--- NOTE | 2017-12-16 09:42 | HHI.PR ---
Subjective Remarks Follow-up pneumonia, urinary retention, hypertension. The patient states that he feels much better today. He states that he is ready to go home. Denies shortness of breath or chest pain. Denies abdominal pain. No further urinary symptoms since placement of Fernandez catheter. Objective Vitals Vital Signs Date Time Temp Pulse Resp B/P (MAP) Pulse Ox O2 Delivery O2 Flow Rate FiO2 12/16/17 08:00 97.4 107 18 149/90 (109) 95 12/16/17 04:00 97.6 79 18 180/87 (118) 95 12/16/17 00:00 98.0 86 20 167/77 (107) 96 12/15/17 21:08 95 21 12/15/17 20:00 97.6 83 20 182/93 (122) 96 12/15/17 16:00 97.6 88 16 174/82 (112) 96 12/15/17 12:00 97.2 79 18 184/93 (123) 99 I/O 12/15/17 12/15/17 12/15/17 12/16/17 12/16/17 12/16/17 07:00 15:00 23:00 07:00 15:00 23:00 Intake Total 1340 ml 1230 ml 480 ml 100 ml Output Total 2250 ml 1975 ml Balance 1340 ml -1020 ml -1495 ml 100 ml Intake Oral 240 ml 980 ml 480 ml IV Total 1100 ml 250 ml 100 ml Output Urine Total 2250 ml 1975 ml Bladder Scan Volume Amount 745 ml 745 ml # Voids 2 # Bowel Movements 2 Result Diagram: 12/15/17 0345 12/15/17 0345 Imaging Last Impressions Chest X-Ray 12/14/17 0438 Signed Impressions: Service Date/Time: Thursday, December 14, 2017 05:24 - CONCLUSION: Mild bilateral pulmonary opacities. Sammy Mace MD Objective Remarks General: No acute distress. Heart: Regular rate and rhythm. No murmur. Lungs: Clear to auscultation bilaterally. No wheezes, rales, or rhonchi. Breathing is nonlabored. Abdomen: Soft, nontender, nondistended. : Fernandez catheter in place. Extremities: No lower extremity edema. Psych: Alert and oriented. Neuro: Normal speech. No focal deficits noted. Procedures None Urinary Catheter: Yes Assessment to: Continue Fernandez insert reason: Obstruction/Retention Vascular Central Line Catheter: No A/P Problem List: (1) Retention of urine ICD Code: R33.9 - Retention of urine, unspecified (2) Bladder cancer ICD Code: C67.9 - Malignant neoplasm of bladder, unspecified (3) Pneumonia ICD Code: J18.9 - Pneumonia, unspecified organism Status: Acute Assessment and Plan 1. Community-acquired pneumonia: Patient presented with shortness of breath, fever. Chest x-ray shows mild bilateral pulmonary opacities. Continue Rocephin , azithromycin. Stable on room air. 2. Weight loss: Patient has had 25 pounds of weight loss over the past 3 months. Diet as tolerated. Add Ensure. Dietary consulted. 3. Urinary retention: Patient has a neobladder and sees urology in [place]. He developed acute retention yesterday. Bladder scan showed 724 cc of urine. Fernandez catheter was placed without complications. Appreciate urology recommendations. Fernandez catheter to remain in place. 4. Renal insufficiency: Improved. Continue IV fluids. 5. DVT prophylaxis: Heparin. Discharge Planning Discharge home in stable condition. Follow-up with PCP, neurology upon return to [place]. Fernandez catheter to remain in place. Regular diet. Activity as tolerated. Problem Qualifiers (1) Pneumonia: Qualified Codes: J18.1 - Lobar pneumonia, unspecified organism Young Garcia MD Dec 16, 2017 09:42
== END 2017-12-16 11:00 | disposition home or self-care (01) | DRG 194 ==
LOC: NEPC 04:33 → NEDA 06:39 → N07B 11:58
PROVIDERS: ADMIT Family Medicine; ATTEND Family Medicine
DX: J18.9 Pneumonia, unspecified organism (principal); N39.0 Urinary tract infection, site not specified; J44.0 Chronic obstructive pulmonary disease with (acute) lower respiratory infection; E87.1 Hypo-osmolality and hyponatremia; R09.02 Hypoxemia; R33.9 Retention of urine, unspecified; I10 Essential (primary) hypertension; I25.10 Atherosclerotic heart disease of native coronary artery without angina pectoris; N28.9 Disorder of kidney and ureter, unspecified; E78.5 Hyperlipidemia, unspecified; R63.4 Abnormal weight loss; Z86.73 Personal history of transient ischemic attack (TIA), and cerebral infarction without residual deficits; Z85.51 Personal history of malignant neoplasm of bladder; Z98.890 Other specified postprocedural states; Z87.01 Personal history of pneumonia (recurrent); Z87.891 Personal history of nicotine dependence; Z95.5 Presence of coronary angioplasty implant and graft; Z68.27 Body mass index [BMI] 27.0-27.9, adult; Z79.82 Long term (current) use of aspirin
CPT/HCPCS: 71045; 80053; 81001; 82550; 82552; 83036; 83605; 83690; 83735; 83880; 84443; 84484; 85025; 85610; 85730; 87040; 87086; 87804; 93005; 94640; 94664; 96361; 96365; 96375; J0456; J0696; J1644; J2405; J7030; J7040; J7050